=== PATIENT | male | born 1970 | race Caucasian/White ===

== ENCOUNTER 2017-02-09 10:48 | Emergency (ER) | payer MEDICARE, MEDICAID ==
[~2017-02-09] VITALS: Ht 190.5 cm; Wt 147.0 kg
--- OUTSIDE RECORDS SUMMARY | 2017-02-09 10:57 | External Medical Summary Rpt | CCD ---
Author Author , DIOMEDES STANLEY Address Unknown Phone Purpose Continuity of Care Document - through 2016 Problems Code Diagnosis DOS Provider Status S16.1XXA STRAIN OF MUSCLE, FASCIA AND TENDON AT NECK LEVEL, INIT S39.012A STRAIN OF MUSCLE, FASCIA AND TENDON OF LOWER BACK, INIT
--- OUTSIDE RECORDS SUMMARY | 2017-02-09 10:57 | External Medical Summary Rpt | CCD ---
Author Author , DIOMEDES STANLEY Address Unknown Phone [email or web address] Purpose Continuity of Care Document - through 2016 Problems Code Diagnosis DOS Provider Status S16.1XXA STRAIN OF MUSCLE, FASCIA AND TENDON AT NECK LEVEL, INIT S39.012A STRAIN OF MUSCLE, FASCIA AND TENDON OF LOWER BACK, INIT
--- OUTSIDE RECORDS SUMMARY | 2017-02-09 10:57 | External Medical Summary Rpt | CCD ---
Author Author , JADEN STANLEY Address Unknown Phone [email or web address] Immunization Name Date Rout CVX Reac Dose Comm Prov Is Faci e tion ent ider Refu lity Give sed n Infl 12-1 141 999 Hist FQ11 No FQ11 uenz 8-20 oric a, 13 al Seas Info onal rmat ion - Sour ce Unsp ecif ied Tdap 03- 115 999 Hist H196 No H196 , 0-20 oric Adso 12 al rbed Info rmat ion - Sour ce Unsp ecif ied Td 03- 9 999 Hist H181 No H181 (seymour 1-19 oric lt), 97 al Info adso rmat rbed ion - Sour ce Unsp ecif ied
--- OUTSIDE RECORDS SUMMARY | 2017-02-09 10:57 | External Medical Summary Rpt | CCD ---
Author Author [employer] Organization [employer] Address Unknown Phone Unavailable Purpose Continuity of Care Document - through 2016
--- OUTSIDE RECORDS SUMMARY | 2017-02-09 10:57 | External Medical Summary Rpt ---
Author Author JADEN Edward, [employer] Organization [employer] Address Unknown Phone Unavailable
--- OUTSIDE RECORDS SUMMARY | 2017-02-09 10:57 | External Medical Summary Rpt | CCD ---
Author Author , JADEN STANLEY Address Unknown Phone [email or web address] Immunization Name Date Rout CVX Reac Dose [...]
--- NOTE | 2017-02-09 11:07 | Urgent Treatment Center Report ---
History of Present Issue Date/Time Seen by Provider 02/09/17 1106 Visit Reason Pt arrived:Walked Presenting Problem:PT C/O LT FOOT PAIN AFTER STEPPIN G OFF A CURB ON THURSDAY Location if Accident:Home Onset of symptoms date/time:/ or onset unknown for:MEDICAL HX UNKNOWN Have you (or family members/close friends) recently traveled outside the [place]? N If Yes, where/when: Have you had exposure to infectious disease within the past month? TB? Other? Specify: c/o left lateral foot and ankle pain after twisting it while stepping off a curb day before yes, Thursday. Pain currently 8/10. Worse with ambulating. Hasn 't taken or tried anything for symptoms. Reports he can't take ibuprofen "due to my heart", hasn't taken tylenol and denies having pain medication to take. Hasn' t called PCP. Source patient Exam Limitations no limitations ALLERGIES Coded Allergies: No Known Allergies (01/23/17) Home Medications Active Scripts HYDROCODONE/ACETAMINOPHEN ([place] 5-325 Tablet) 1 TAB PO Q6HP PRN pain #10 TAB Prov: 01/23/17 Reported Medications Lisinopril 10 MG PO DAILY #30 Gabapentin 300 MG PO BID #90 Pantoprazole Sodium 40 MG PO DAILY #30 Atorvastatin Calcium 40 MG PO DAILY #30 Ticagrelor (Brilinta) 90 MG PO DAILY #60 History Medical History General CAD? No Angina: Yes [place]: Yes Hypertension? Yes Hyperlipidemia? Yes CHF? No DVT? No PE? No COPD? No Asthma? No Anemia? No GERD? No Gastric ulcers? No GI Bleed? No Hernia? No Thyroid Problems? No Hypothyroidism? No CVA? No Seizures? Yes Diabetes? No Renal Insuffiency? No UTI? No Stones? No BPH? No GB Disease: No Nephritic Syndrome? No Asplenia? No Hepatitis? No Sickle Cell Disease? No Arthritis? No Migraines? No Cataracts? No Glaucoma? No MRSA? No HIV? No TB? No Anxiety? No Depression? No Cancer? No More? No Immunization HX DT/Tetanus 1-4 Years Ago Surgical Hx Previous Surgery?Y BACK X 2 NECK PACEMAKER Social History Smoking Hx Smoker: Current Every Day Smoker Tobacco: Yes Type Cigarettes Packs/day 1 1/2 - 2 Packs Alcohol Alcohol: No Review of Systems All Other Systems Reviewed and Negative (as appropriate for CC) Constitutional denies fever, denies malaise Musculoskeletal see HPI, denies joint swelling, denies muscle stiffness Skin denies change in color, denies lesions Psychiatric/Neurological denies numbness, denies tingling Physical Exam Vital Signs Vital Signs Date Time Temp Pulse Resp B/P Pulse O2 O2 Flow FiO2 Ox Delivery Rate 02/09 1103 98.7 70 18 106/71 97 General Appearance no apparent distress, obese, seated in exam chair Respiratory Status No: respiratory distress. Cardiovascular no peripheral edema Peripheral Pulses Pulses normal No (PT/DP 1+ bilaterally) Back gait abnormality (limp favoring left) Extremities normal range of motion (left ankle and toes), swelling (minimal left lateral midfoot), inc pain with left ankle dorsiflexion, ttp left malleous and lateral midfoot Neurologic alert, no motor/sensory deficits, oriented x 3 Skin intact, normal color, warm/dry Medical Decision Making LABS/Meds/Orders Pt receiving controlled substance in ED? No Results/Orders Orders Procedure Date/time Status STABILIZE JOINT 02/09 1208 Active XRAY/CT/US XRAY/CT/US XRAY ankle (left), foot (left) XR interpretation by reviewed by me (Dr. Taylor, TELMA LOREDO), discussed w/ radiologist (Dr. Fraser) Xray Results no acute finding; my concern was sesmoid per Dr. Fraser, Radiologist Departure Departure Time of Disposition 1208 Disposition DC Home or Self Care(routine) Clinical Impression Primary Impression: Sprain of left foot Qualifiers: Encounter type: initial encounter Qualified Code: S93.602A - Unspecified sprain of left foot, initial encounter Condition STABLE Referrals PATRIC HOYOS DPM Follow up IMMEDIATELY for new or worsening symptoms OR no noticeable improvement over the next 3-5 days. If you can't get in here, see your primary care. Patient Instructions DI for Foot Sprain, How to Apply an Musa Wrap, How To Perform RICE (Rest, Ice, Compress, Elevate), How to Use Crutches Additional Instructions * weight bearing as tolerated but if painful, do not bear weight and use crutches * Rest * ice 15-20 mins 3-4 times a day * Musa wrap for support and swelling unless in shower. Be sure not too tight but not too loose either * Elevate as discussed as much as possible to help reduce swelling and therefore , pain * tylenol every 4 hours as needed. Avoid ibuprofen if you have been told to. Elevation and ice important to help with inflammation Discharge Counseling Counseled pt/family regarding diagnosis, test results, medications/RX, home care, follow up needs at 1212
--- NOTE | 2017-02-09 12:11 | RADIOLOGY REPORT PS360 ---
FOOT-LT-3 VIEWS HISTORY: STEPPED OFF CURB ON THURSDAY ORDERING PHYSICIAN: JOVANI CHAKRABORTY APRN PATIENT AGE: 46 years COMPARISON: None FINDINGS: No fracture or dislocation. No lytic or blastic change. There is normal mineralization.. The joint spaces are well-preserved. No significant degenerative/arthritic changes. No erosive changes evident. There is an ossicle volume is a normal variant IMPRESSION: No acute fracture
--- NOTE | 2017-02-09 12:11 | RADIOLOGY REPORT PS360 ---
ANKLE-LT-3 VIEWS HISTORY: Pain left lateral foot/ankle pain after stepping off curb 02/07 ORDERING PHYSICIAN: JOVANI CHAKRABORTY APRN PATIENT AGE: 46 years COMPARISON: None FINDINGS: No fracture or dislocation. No lytic or blastic change. There is normal mineralization.. The joint spaces are well-preserved. No significant degenerative/arthritic changes. No erosive changes evident. IMPRESSION: Negative ankle, no acute finding
[2017-02-09 12:34] VITALS: BP 106/71
== END 2017-02-09 12:35 | disposition home or self-care (01) ==
LOC: UTC 10:48
PROC: 2W3RX1Z Immobilization of Left Lower Leg using Splint (ICD-10-PCS; principal; 2017-02-09)
DX: S93.602A Unspecified sprain of left foot, initial encounter (principal); X50.1XXA Overexertion from prolonged static or awkward postures, initial encounter; Y92.480 Sidewalk as the place of occurrence of the external cause
CPT/HCPCS: 29515; G0463

== ENCOUNTER → 2017-02-09 | Outpatient (CLI) | payer MEDICARE, MEDICAID ==
[~2017-02-09] MED LIST: ATORVASTATIN CA40 MG PO; BRILINTA90 M1 PO; GABAPENTIN300 M1 PO; LISINOPRIL10 MG PO; NORCO 325 MG-51 TAB PO; PANTOPRAZOLE SO40 M1 PO
--- NOTE | 2017-02-09 10:28 | CARDIOVASCULAR REPORT ---
"Cerebrovascular Exam Indications: 433.10 Occlusion/stenosis of carotid artery without cerebral infarction. IMPRESSIONS 1. The bilateral vertebral arteries are patent with normal antegrade flow. 2. Study suggests less than 20% stenosis involving the right internal carotid artery and the left internal carotid artery. No change from the study of 05-Aug-2016. History: Coronary artery disease. Risk factors: Hypertension. Hyperlipidemia. Carotid duplex study. Complete study and Doppler flow study including spectral analysis, color and winters scale imaging. Height: Height: 190.5cm. Height: 75in. Weight: Weight: 147kg. Weight: 323.3lb. Body mass index: BMI: 40.5kg/m^2. Body surface area: BSA: 2.85m^2. Location: Vascular laboratory. Patient status: Outpatient. Tables: Arterial flow: + +--------+--------+ |Location |V sys |V ed | + +--------+--------+ |Right CCA - proximal|106cm/s |28.3cm/s| + +--------+--------+ |Right CCA - distal |116cm/s |29.9cm/s| + +--------+--------+ |Right ECA |112cm/s |--------| + +--------+--------+ |Right ICA - proximal|91.1cm/s|36.9cm/s| + +--------+--------+ |Right ICA - mid |91.9cm/s|36.9cm/s| + +--------+--------+ |Right ICA - distal |101cm/s |36.1cm/s| + +--------+--------+ |Right vertebral |33.8cm/s|--------| + +--------+--------+ |Left CCA - proximal |120cm/s |28.3cm/s| + +--------+--------+ |Left CCA - distal |95.1cm/s|29.1cm/s| + +--------+--------+ |Left ECA |105cm/s |--------| + +--------+--------+ |Left ICA - proximal |93.5cm/s|39.3cm/s| + +--------+--------+ |Left ICA - mid |111cm/s |35.4cm/s| + +--------+--------+ |Left ICA - distal |98.2cm/s|38.5cm/s| + +--------+--------+ |Left vertebral |32.2cm/s|--------| + +--------+--------+ Velocity ratios: + + + + + + | |Right, V sys|Right, V ed|Left, V sys|Left, V ed| + + + + + + |Max ICA/dist CCA|0.87 |1.23 |1.17 |1.35 | + + + + + + (Report amended ) Electronically signed by: Cosme Fraser [id number]"
--- NOTE | 2017-02-09 20:18 | RADIOLOGY REPORT PS360 ---
PROCEDURE 2-D M-mode and color Doppler study INDICATIONS FOR THE TEST: Chest pain X COPD Heart Murmur Tobacco Smoking Palpitations Fatigue Syncope Edema Hypertension Diabetes Mellitus Rheumatic Fever SOB ALEXANDER Obesity Hyperlipidemia Family History HD Additional History PIPO PATIENT INFORMATION HEIGHT: 75 WEIGHT:324 GENDER: Male B/P:125/76 2-D/M-MODE INTERPRETATION: 2-D MEASUREMENTS OBSERVED VALUES IN CMS Right Ventricular Dimension (RVDd) 2.7 Interventricular Septum (Thickness)(IVsd) 1.1 Left Ventricular Internal Dimensions(LVIDd) 4.6 Left Ventricular Posterior Wall (Thickness)(LVPWd) 1.1 Aortic Root 3.6 Aortic Cusp Separation 2.5 Left Atrial Dimensions (LAD) 4.4 2D 1. Left atrium is mildly enlarged, left ventricle is normal size, there is mild qualitative concentric left ventricular hypertrophy present, visually estimated ejection fraction of 55% with no obvious regional wall motion abnormality, endocardial surfaces are poorly visualized. 2. The right atrium is normal size, right ventricle is relatively normal size and function. 3. The aortic valve is structurally normal, morphologically there is no aortic stenosis. 4. The mitral and tricuspid valve are grossly normal. 5. The pulmonic valve is poorly visualized. 6. No significant pericardial effusion noted. DOPPLER INTERROGATION: Doppler interrogation of the aortic, mitral and tricuspid valve reveals presence of mild mitral and tricuspid regurgitation, tricuspid regurgitant jet velocity is insufficient for calculation of the right ventricular systolic pressure, there is late peaking systolic velocity seen in the left ventricular outflow track whether this is secondary to mitral regurgitation or dynamic obstruction, is difficult to ascertain from this study, if clinically indicated transesophageal echocardiogram is recommended. Grade 1 diastolic dysfunction seen without tissue Doppler evidence of raised left atrial pressure. CONCLUSION: 1. Technically difficult study because of the patient's factor and poor acoustic windows 2. Mildly enlarged left atrium, normal left ventricular size, mild concentric left ventricular hypertrophy, visually estimated ejection fraction 55% with no obvious regional wall motion abnormality. Grade 1 diastolic dysfunction seen without tissue Doppler evidence of raised left atrial pressure. 3. Late peaking aortic outflow velocities seen raising the concern is for presence of dynamic left ventricular outflow track obstruction, as described above, if clinically indicated transesophageal echocardiogram is recommended. Morphologically there is no aortic stenosis. 4. Mild mitral and tricuspid regurgitation. 5. No significant pericardial effusion noted.
--- NOTE | 2017-02-11 11:34 | RADIOLOGY REPORT PS360 ---
CARDIOLITE SPECT MYOCARDIAL PERFUSION SCAN, REST AND STRESS: EXERCISE STRESS [facility] REVIEW QGS EF AND WALL MOTION EVALUATION: QPS - PERFUSION EVALUATION HISTORY: Chest pain, SOB, CAD DOSE: 10.34 mCi technetium 99m mibi intravenously at rest followed by 32.1 mCi technetium 99m mibi following the intravenous ministration of 0.4 mg of Lexiscan. Resting blood pressure is 125/76. Stress blood pressure 121/74. FINDINGS: Ejection fraction is calculated to be 56%. SPECT images reveal mildly decreased activity in the apex and a small portion of the inferior apical wall. Rest images reveal slightly worsening activity in the inferior apical wall and slightly worse activity in the apex. Gated images calculated ejection fraction of 56% with normal wall motion IMPRESSION: Clinical correlation is advised. This test does suggest some degree of reverse redistribution and there is a mild to moderate risk stress test. Normal ejection fraction wall motion
--- NOTE | 2017-02-11 11:34 | RADIOLOGY REPORT PS360 ---
CARDIOLITE SPECT MYOCARDIAL PERFUSION SCAN, REST AND STRESS: EXERCISE STRESS [facility] REVIEW QGS EF AND WALL MOTION EVALUATION: QPS - PERFUSION EVALUATION HISTORY: Chest pain, SOB, CAD DOSE: 10.34 mCi technetium 99m mibi intravenously at rest followed by 32.1 mCi technetium 99m mibi following the intravenous ministration of 0.4 mg of Lexiscan. Resting blood pressure is 125/76. Stress blood pressure 121/74. FINDINGS: Ejection fraction is calculated to be 56%. SPECT images reveal mildly decreased activity in the apex and a small portion of the inferior apical wall. Rest images reveal slightly worsening activity in the inferior apical wall and slightly worse activity in the apex. Gated images calculated ejection fraction of 56% with normal wall motion IMPRESSION: Clinical correlation is advised. This test does suggest some degree of reverse redistribution and there is a mild to moderate risk stress test. Normal ejection fraction wall motion
== END ==
LOC: RAD 06:32
DX: I25.111 Atherosclerotic heart disease of native coronary artery with angina pectoris with documented spasm (principal); R06.02 Shortness of breath; I65.23 Occlusion and stenosis of bilateral carotid arteries
CPT/HCPCS: A9502; J2785